=== PATIENT | male | born 1980 | race Caucasian/White ===

== ENCOUNTER → 2020-05-31 17:34 | Outpatient (BNVA) | payer BC, SELFPAY | PROVIDERS: Family Provider Family Medicine; PCP Family Medicine; Visit Provider Nurse Practitioner | DX: B34.9 Viral infection, unspecified (principal); J02.9 Acute pharyngitis, unspecified | CPT/HCPCS: 87071; 87880 ==

== ENCOUNTER 2021-06-22 09:29 | Outpatient (CLI) | payer BC, SELFPAY ==
[2021-06-22 09:57] LABS: D Dimer <= 0.27 ug/mIFEU (0-0.59)
== END 2021-06-22 09:30 | disposition home or self-care (01) ==
PROVIDERS: PCP Family Medicine; Visit Provider Family Medicine
DX: U07.1 COVID-19 (principal)
CPT/HCPCS: 85378

== ENCOUNTER → 2024-08-30 10:16 | Outpatient (BNVA) | payer BC, SELFPAY | PROVIDERS: PCP Family Medicine; Visit Provider Registered Nurse Neonatal Intensive Care | DX: R50.9 Fever, unspecified (principal); R39.9 Unspecified symptoms and signs involving the genitourinary system | CPT/HCPCS: 81000; 87086; 87400 ==

== ENCOUNTER 2025-10-01 10:12 | Emergency (ER) | payer BC, SELFPAY ==
[2025-10-01 10:15] VITALS: BP 144/88; PULSE 103; RESP 20; TEMP 37.3; O2SAT 95; BMI 31.1
--- NOTE | 2025-10-01 10:19 | XRR_ITS ---
PROCEDURE INFORMATION: Exam: XR Right Hand Exam date and time: 10/01/2025 10:35 AM Age: 45 years old Clinical indication: Injury or trauma; Other: Smashed fingers TECHNIQUE: Imaging protocol: Radiologic exam of the right hand. Views: 3 or more views. COMPARISON: No relevant prior studies available. FINDINGS: Bones/joints: Comminuted, nondisplaced tuft fracture of the right 2nd distal phalanx. Comminuted tuft fracture of the right 3rd distal phalanx with approximately 2 mm of volar displacement the of the distal fracture fragment. Comminuted tuft fracture of the right 4th distal phalanx with approximately 4 mm of distraction and 1 shaft width of volar displacement of the distal fracture fragment. No dislocation. Normal bone mineralization. No joint effusion. Joint spaces are maintained. Soft tissues: Soft tissue swelling at the distal 2nd, 3rd, and 4th fingers with a laceration at the 4th finger. No radiopaque foreign body. XR/XR hand RT min 3V* [id number] IMPRESSION: 1. Comminuted, nondisplaced tuft fracture of the right 2nd distal phalanx. 2. Comminuted tuft fracture of the right 3rd distal phalanx with approximately 2 mm of volar displacement the of the distal fracture fragment. 3. Comminuted tuft fracture of the right 4th distal phalanx with approximately 4 mm of distraction and 1 shaft width of volar displacement of the distal fracture fragment. 4. Soft tissue swelling at the distal 2nd, 3rd, and 4th fingers with a laceration at the 4th finger. 5. Incidental/nonacute findings are listed in the report.
[2025-10-01 10:38] VITALS: RESP 20; O2SAT 95
[2025-10-01] MEDS: morphine 4 mg/mL SDV 1 mL IVP ×2 (10:38→12:10)
[2025-10-01] MEDS: ceFAZolin 1,000 mg SDV 1000 MG IVP (10:56)
[2025-10-01 11:00] VITALS: BP 147/87; PULSE 101; O2SAT 94
--- NOTE | 2025-10-01 11:04 | W.ED.WOUNDLC ---
HPI - Wound/Laceration General: Chief Complaint: Wound/Laceration Stated Complaint: Cut R hand fingers Time Seen by Provider: 10/01/25 10:15 History of Present Illness: 45-year-old male was loading some equipment and crushed his 3rd and 4th fingers of his right hand. He is up-to-date on his tetanus. He denies any other injuries. He drove himself to the emergency room he has partial amputations of both fingertips. Related Data Previous Rx's ?Medication ?Instructions ?Recorded mupirocin 2 % topical ointment 1 applic topical DAILY #22 grams 10/01/25 (Centany) cephalexin 500 mg capsule 500 mg PO TID 10 days #30 caps 10/05/25 hydrocodone 5 mg-acetaminophen 325 1 tab PO Q6H PRN pain 5 days #20 10/05/25 mg tablet tabs Allergies Allergy/AdvReac Type Severity Reaction Status Date / Time No Known Allergies Allergy Verified 10/07/25 10:57 [facility] ED PFSH: Medical History HTN (hypertension) Chest pain Social History Smoking and tobacco/nicotine status: never used tobacco/nicotine Alcohol intake: never Substance/Drug Use: never Physical Exam Extremity: NARRATIVE EXTREMITY EXAM: Crush injury with partial amputation of the 3rd and 4th distal phalanx on the right hand. No injury proximally. There is good vascularity to the tips of the fingers distal to the crush injury. Procedures Laceration Laceration 1: Site: upper extremity Side (If applicable): right (Second finger) Size (cm): 2.5 Description: irregular Depth: simple, single layer Local Anesthetic: other anesthetic (Digital nerve block) Pre-repair: irrigated extensively Skin layer closed with: nylon Size (cm): 3-0 Number of sutures: 3 Technique: simple, interrupted Laceration 2: Site: upper extremity and hand Side (If applicable): right Size (cm): 2.5 Description: irregular Depth: simple, single layer Local Anesthetic: other anesthetic (Digital nerve block) Nerve Block Nerve Block 1: Time out performed: Yes Local Anesthetic: lidocaine 1% Amount of anesthesia used (mL): 3 Side: right (Fourth finger) Nerve Blocks: digital Procedure Successful: Yes Patient Tolerated Procedure: well Nerve Block 2: Time out performed: Yes Amount of anesthesia used (mL): 3 Side: right Nerve Blocks: digital (Third finger) Procedure Successful: Yes Patient Tolerated Procedure: well Complications: none Course Vital Signs: Vital signs: Vital Signs Temperature 99.1 F 10/01/25 10:15 Pulse Rate 84 10/01/25 12:56 Respiratory Rate 18 10/01/25 12:10 Blood Pressure 131/86 10/01/25 12:56 Pulse Oximetry 94 10/01/25 12:56 Oxygen Delivery Me thod Room Air 10/01/25 10:15 MDM - Wound/Laceration Medical Decision Making Digital nerve block carried out on the right 3rd and 4th fingers. The wounds were copiously irrigated. Nail trephinated and a single suture of 3-0 nylon placed to approximate the skin tissue. After this single suture placed both medially and laterally to secure the tissue. On initial exam patient had good capillary refill of the distal soft tissue repeat exam still has good capillary refill after repair. Both the 3rd and 4th fingers were treated in the same fashion. Distal tuft fractures of 2nd, 3rd and 4th digits. The laceration was loosely closed including trephination of the nail to allow for sutures on 3rd and 4th finger. A large bulky Ortho-Glass splint was made to protect the fingertip. Discussed with Dr. Mckee. Will discharge patient home and have him follow-up in outpatient clinic with Dr. Mckee. He was given oral antibiotics. Medical Records I reviewed the patient's medical records. Lab Data I reviewed the patient's lab results. Radiology Impressions Hand X-Ray 10/01/25 10:19 IMPRESSION: 1. Comminuted, nondisplaced tuft fracture of the right 2nd distal phalanx. 2. Comminuted tuft fracture of the right 3rd distal phalanx with approximately 2 mm of volar displacement the of the distal fracture fragment. 3. Comminuted tuft fracture of the right 4th distal phalanx with approximately 4 mm of distraction and 1 shaft width of volar displacement of the distal fracture fragment. 4. Soft tissue swelling at the distal 2nd, 3rd, and 4th fingers with a laceration at the 4th finger. 5. Incidental/nonacute findings are listed in the report. All radiology interpretation(s) finalized by discharge Discharge Plan Discharge Patient Disposition: Home Clinical Impression: Partial traumatic amputation of right middle finger through phalanx, Partial traumatic amputation of right ring finger through phalanx Condition: Stable Prescriptions: New mupirocin [Centany] 2 % ointment 1 applic topical DAILY Qty: 22 0RF No Action hydrocodone-acetaminophen 5-325 mg tablet 1 tab PO Q6H PRN (Reason: pain) 5 Days Qty: 20 0RF cephalexin 500 mg capsule 500 mg PO TID 10 Days Qty: 30 0RF Discharge Orders: Discharge ED (Routine); Ordered 10/01/25 Ordered By: Ollie Orellana Referrals: Laura Tony DO [Primary Care Provider, Urgent Care] Discharge Diet: Usual diet Discharge Activity: Limit activity as instructed Patient Instructions: Opioid Safety, Pain Management, Patient Portal & Shiva Instructions Activity Restrictions/Additional Instructions: Thank you for choosing [facility] for your healthcare needs today. It is very important that you follow up as instructed or that you return to the Emergency Department should you have concerns or if your condition changes or worsens in any way. Emergency department visits are focused on emergent conditions, in some cases you may require further evaluation on an outpatient basis. You were seen in the emergency room after trauma to the right 3rd and 4th fingertips which were partially amputated. The tissue was loosely reapproximated with sutures. Case management make arrangements for you to follow-up with Dr. Mckee in the office. It is possible that these may need to be revised depending on how they heal. You are given pain medications oral antibiotics topical antibiotic ointment. Clean the wounds under running water once daily and apply the topical antibiotic ointment. We also fashioned a splint to protect the fingertips. Return if there is any sign of infection. (Please note that included in your discharge packet is information concerning opioid safety and pain management. 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
[2025-10-01 11:30] VITALS: BP 154/94; PULSE 93; O2SAT 93
[2025-10-01 12:10] VITALS: RESP 18
[2025-10-01] MEDS: bacitracin ointment Pkt 1 EACH TOPICAL (12:29)
[2025-10-01 12:56] VITALS: BP 131/86; PULSE 84; O2SAT 94
== END 2025-10-01 12:58 | disposition home or self-care (01) ==
PROVIDERS: Emergency Provider Family Medicine; PCP Family Medicine
DX: S68.622A Partial traumatic transphalangeal amputation of right middle finger, initial encounter (principal); S68.624A Partial traumatic transphalangeal amputation of right ring finger, initial encounter; I10 Essential (primary) hypertension; X58.XXXA Exposure to other specified factors, initial encounter
CPT/HCPCS: 12002; 73130; 96374; 96375; 96376; 99284; J0690; J2270; J9999

== ENCOUNTER → 2025-10-05 14:07 | Outpatient (BNVA) | payer BC, SELFPAY | PROVIDERS: PCP Family Medicine; Visit Provider Physician Assistant | DX: S68.624D Partial traumatic transphalangeal amputation of right ring finger, subsequent encounter (principal); S68.622D Partial traumatic transphalangeal amputation of right middle finger, subsequent encounter; W23.0XXA Caught, crushed, jammed, or pinched between moving objects, initial encounter | CPT/HCPCS: 73130 ==

== ENCOUNTER 2025-10-07 10:41 | Day surgery (SDC) | payer BC, SELFPAY ==
[2025-10-07] VITALS (15 sets, daily range): BP systolic 124–159; BP diastolic 70–104; PULSE 62–85; RESP 14–24; TEMP 36.1–37.3; O2SAT 92–98; BMI 32.3
--- NOTE | 2025-10-07 | XR_ITS ---
WS: [id number] Exam: XR hand RT 2V [id number] Date/Time of Exam: 10/07/2025 12:00 AM Reason For Exam: HAND SURGERY DLP: Intraoperative AP and lateral C-arm images of the RIGHT third and fourth fingers are submitted. There is axial pin fixation involving fractures of the third and fourth distal phalanges. Both fractures appear to be stabilized in satisfactory alignment for healing.
--- NOTE | 2025-10-07 11:13 | ANES.PREANE2 ---
Pre-Anesthetic Assessment Height/Weight: Height 6 ft 6 in Preop Diagnosis: Traumatic amputation of right ring and middle finger Operation Date: 10/07/25 12:40 Proposed Procedures p RIGHT Middle Finger and RIGHT Ring Finger Irrigation and Debridement(Right) - Braden Duranatt, DO s RIGHT Middle and Right Ring Finger POSSIBLE Nail Bed Repair(Right) - Braden Mckee, DO s POSSIBLE Revision Amputation(Right) - Braden Rylee, DO Was Beta Rita taken within 24 hours: N/A Was Clonidine taken within 24 hours: N/A Social No alcohol and No tobacco Exam alert, oriented x 3, clear to auscultation bilaterally and regular rate & rhythm Airway Submandibular: within normal limits Cervical ROM: within normal limits Mallampati: Class III Dentition: full Comments: Comments: Multiple missing teeth, denies any loose Anesthetic Plan ASA status: 2 Anesthesia: Choice Other: No prior issues with anesthesia NPO since yesterday evening Patient states he he has a mild history of hypertension but has never been placed on any meds for this Denies any pulmonary issues METs greater than 4 Medications/Allergies Home Medications ?Medication ?Instructions ?Recorded ?Confirmed ?Last Taken ?Type mupirocin 2 % topical ointment 1 applic topical DAILY #22 grams 10/01/25 10/07/25 10/06/25 Rx (Centany) cephalexin 500 mg capsule 500 mg PO TID 10 days #30 caps 10/05/25 10/07/25 10/07/25 Rx hydrocodone 5 mg-acetaminophen 325 1 tab PO Q6H PRN pain 5 days #20 10/05/25 10/07/25 10/07/25 Rx mg tablet tabs Allergies Allergy/AdvReac Type Severity Reaction Status Date / Time No Known Allergies Allergy Verified 10/07/25 10:57 [facility] Anesthesia Medical History (Updated 10/04/25 @ 09:57 by Radha Zaldivar NP) HTN (hypertension) Chest pain Social History Smoking and tobacco/nicotine status: never used tobacco/nicotine Alcohol intake: never Substance/Drug Use: never
[2025-10-07] MEDS: acetaminophen 1,000 MG/100 ML PIGGYBACK 400 MG IV (11:32)
--- NOTE | 2025-10-07 12:28 | W.PM.OPSUD ---
Surgery/Procedure H&P Update DATE OF PROCEDURE: October 07, 2025 DATE H&P PERFORMED: 10/05/25 H&P UPDATE INFORMATION: I have reviewed H&P completed within last 30 days, I have examined patient prior to procedure and No changes to prior documentation PREOP DIAGNOSIS: Traumatic amputation of right ring and middle finger PRIMARY INDICATION FOR PROCEDURE: Traumatic fingertip amputations of the right ring finger and right middle finger with apparent nailbed injury and distal phalanx fractures PLANNED PROCEDURE: Operation Date: 10/07/25 12:40 Proposed Procedures p RIGHT Middle Finger and RIGHT Ring Finger Irrigation and Debridement(Right) - DO jacqueline Patricio RIGHT Middle and Right Ring Finger POSSIBLE Nail Bed Repair(Right) - DO jacqueline Patricio POSSIBLE Revision Amputation(Right) - Braden Mckee DO
[2025-10-07] MEDS: ceFAZolin 3,000 MG in sodium chloride 0.9% (plus) 100 ML 200 MG IV (12:45)
[2025-10-07] MEDS: ROPivacaine 0.5% SDV 30 mL 25 MG INJECTION (13:42)
--- NOTE | 2025-10-07 14:48 | ANE.PACU2 ---
Inpatient post-anesthesia follow up: Airway intact: Yes Vital signs: Temperature 99.1 F Pulse Rate 62 Respiratory Rate 24 Blood Pressure 130/72 Pulse Oximetry 97 Oxygen Delivery Me thod Simple Mask Oxygen Flow Rate 10 Fraction of Inspir ed Oxygen Hydration adequate: Yes Nausea and vomiting: No Pain level: 2 Mental status: Baseline
--- NOTE | 2025-10-07 15:19 | W.PM.BPON ---
Date of Procedure: 10/07/2025 Surgeon: Braden Mckee DO Finishing Machine Operator Automatic(s): None Procedure(s) performed: Right middle finger irrigation and debridement (1.5 cm x 1.5 cm x 1.5 cm) Right middle finger nailbed repair Right middle finger distal phalanx open reduction internal fixation with K wire pinning Right ring finger irrigation and debridement (1.5 cm x 1.5 cm x 1.5 cm) Right ring finger nailbed repair Right ring finger distal phalanx open reduction internal fixation with K wire pinning Findings of the procedure(s): Patient after the prep and before tourniquet was insufflated was found to have intact volar pads with brisk capillary refill at the pulp of the fingertip consistent with I feel this would have a good propensity for healing with a nailbed repair and distal phalanx pinning. As a result each finger had nail plate removed thoroughly irrigation debridement performed and then subsequently nailbed repairs for both fingers as well as open reduction internal fixation of the distal phalanx of each bones. Tolerated procedure well without issues. Tourniquet was deflated and patient had good brisk capillary refill at the fingertips. At this point in time patient placed in a ulnar gutter splint. Patient Toller procedure well without issues or complications taken to recovery in stable condition. Estimated blood loss: 10 mL Specimen(s) removed: Nailplates removed as well as multiple bony fragmentations but nothing sent for specimen Post-operative diagnosis: Traumatic crush injury with near fingertip amputations to the right middle and right ring finger consistent with open distal phalanx fractures and nailbed injuries to the right middle and ring fingers
--- NOTE | 2025-10-07 15:19 | PM.OP ---
Operative Report Date of procedure: October 07, 2025 Pre-op diagnosis: Traumatic amputation of right ring and middle finger Post-op diagnosis: Traumatic fingertip amputations of the right ring finger and right middle finger with apparent nailbed injury and distal phalanx fractures Post-op findings: See operative report narrative Procedure done: Right middle finger irrigation and debridement (1.5 cm x 1.5 cm x 1.5 cm) Right middle finger nailbed repair Right middle finger distal phalanx open reduction internal fixation with K wire pinning Right ring finger irrigation and debridement (1.5 cm x 1.5 cm x 1.5 cm) Right ring finger nailbed repair Right ring finger distal phalanx open reduction internal fixation with K wire pinning Implants: 2 x 0.045 K wire Surgeon: Braden Mckee DO Multifocal Button Generator: none Estimated blood loss (mL): 10 65mins IV fluids: 400mL Complications: none Findings: see op note Condition: stable Disposition: same day Brief History: Patient is findings and was seen eval in the outpatient setting consistent with a crush injury to the fingertips of the right middle and ring fingers with disruption of the nailbed and open distal phalanx fracture has been on antibiotics. At this point in time we talked about his treatment options in order for better irrigation and debridement for long-term risks of infection as well as better repair of possible nailbed or evaluation of possible need for revision amputations we talked about his treatment options in detail and through shared decision making patient elects to proceed with surgical intervention for Right hand middle finger and ring finger I&D and possible revision amputation of ring finger and possible nail bed repair. Once again he understands ins and outs of the procedure the risk benefits complication alternatives of surgical nonsurgical treatment options. Understands risk for surgery he elects proceed with surgical invention all questions answered at this time. Procedure: Patient was seen evaluate in the preoperative holding area. Consent was reviewed and signed with patient. Correct digits/extremity was then subsequently marked. Patient was then seen evaluated by anesthesia once cleared for surgery patient was taken back to the operative suite. Patient was kept on hospital gurney and armboard was applied to Right upper extremity. Patient underwent anesthesia per the anesthesia apartment once appropriate anesthetized the nonsterile tourniquet applied to the right upper extremity. Right upper extremity was then prepped and draped in standard orthopedic fashion. Final timeout performed. Patient received appropriate preoperative antibiotics. Esmarch tourniquet was used exsanguinate right upper extremity tourniquet insufflated to 250 mmHg. Patient then subsequently had digital blocks performed of the right middle and ring fingers. This point in time I then subsequently evaluated Right middle?finger?patient's crush injury and open laceration around the?finger?pulp was inspected.? It was first was then thoroughly irrigated and they subsequently moved that ?nail?this allowed me full visualization of patient's complex laceration this had transverse split through the sterile matrix, germinal matrix appeared intact. This went directly down onto bone and there was a reasonably large bony fragment distally connected with the pulp. This was able to be open but then you are able to see the entire connection of the soft tissue envelope volarly which both contain both neurovascular bundles at this point in time this finger did appear to have definitely ability for salvage and no need for revision amputation. At this point I am thoroughly irrigation performed I utilized a curette and rongeur and debrided the entirety of the right middle finger which debrided in total of 1.5 cm x 1.5 cm x 1.5 cm of nonviable tissue of skin could be continued tissue and bone. At this point in time once I was satisfied with my debridement I then subsequently placed a 0.045 K wire in a retrograde fashion through the distal fracture fragment I then held the fracture reduced and then advanced the K wire across the DIP joint into the middle phalanx. This is all done under mini fluoroscopic C-arm imaging. This subsequently held reduced the finger as well as fracture as well as then reapproximated the sterile matrix. The nailbed was then repaired with Monocryl suture and then subsequently a drop of Dermabond was placed to seal the rest of this and allowed to cure. Once I was done with the right middle finger I then subsequently thoroughly irrigated once more I subsequently bent cut and capped with a [employer] ball the pin to the right middle finger. A Xeroform was placed underneath the nail eponychial him to prevent from adhesions and then the laceration that was on the radial and ulnar sides of the digit were then reapproximated with simple interrupted nylon suture. This completed the work on the right middle finger. Next in the same fashion I then started with the right ring finger thoroughly irrigation was then subsequently performed I was able debride off any hematoma and clot and was able to open both the fracture site. Once again I had to remove the nail plate which allowed me to visualize the complex fracture and patient did have a more proximal transverse split through the nailbed communicating down to the distal phalanx this allowed for a larger distal fracture fragment of bone once again I made evaluation of the germinal matrix and made small incisions in the corners of the eponychial him to lift up the eponychial fold and looked under and there was only a minimal superficial lamination of the top surface of the germinal matrix which this was held down with a [place]. I then subsequently visualized the once again transverse through the sterile matrix. This all appeared to be viable and able to be repaired I then subsequently once again verified there was significant volar pulp intact with the bundle and subsequently then thoroughly irrigated utilized curette rongeur to debride all nonviable tissue skin subcutaneous tissue fascia and bone. This area total 1.5 cm x 1.5 cm x 1.5 cm. Once this was done I then once again utilized a 0.045 K wire in retrograde fashion and pin the distal fracture fragment held the fracture reduced and advanced a K wire across the DIP joint into the middle phalanx for fracture stability. This was all done under mini fluoroscopic imaging once in satisfactory position I then subsequently performed a repair of the nailbed with chromic suture and then a drop of Dermabond glue over the nailbed for the finalize of my nailbed repair. This eponychium was held by my grants assistant to the nailbed cured with the Dermabond glue. Once this was done I then subsequently closed the laceration and incisions with interrupted nylon suture. This point in time the K wire pin was then subsequently bent cut and capped with a Lovely ball. This point in time I then subsequently cut out an additional Xeroform and placed this under the eponychial fold to prevent any adhesions. This point in time I was satisfied with the open reduction and percutaneous pinning of the distal phalanx held in good reduction manner as well as the nailbed repairs and satisfactory irrigation debridement. At this point in time tourniquet was deflated hemostasis was satisfactory. The fingertips had good brisk capillary refill. Bulky soft dressings were then applied to the right middle and ring finger and incorporated into a ulnar gutter splint out to the fingertips including the right middle and ring fingers. This was then dressed with an David wrap as well. Patient was then awakened from anesthesia and taken recovery in stable condition. Disposition: Patient taken recovery in stable condition tolerated procedure well. Will receive appropriate discharge directions as well as pain medication postoperatively as well as continued postoperative antibiotics. Patient follow-up in the orthopedic office in 2 weeks patient and family understands agrees with current plan. All questions answered.
[2025-10-07] MEDS: ondansetron 2 mg/ML SDV 2 mL 4 MG IVP ×2 (15:38→17:00)
--- NOTE | 2025-10-07 17:11 | SUR.PHASEII ---
dennis called into [facility] 4mg odt po q8h #9 0rf.
== END 2025-10-07 17:10 | disposition home or self-care (01) ==
PROVIDERS: Visit Provider Student in an Organized Health Care Education/Training Program
PROC: (CPT 26756; principal; 2025-10-07 12:30)
PROC: (CPT 26756; 2025-10-07 12:30)
PROC: (CPT 26615; 2025-10-07 12:30)
DX: S68.114A Complete traumatic metacarpophalangeal amputation of right ring finger, initial encounter (principal); S68.112A Complete traumatic metacarpophalangeal amputation of right middle finger, initial encounter; X58.XXXA Exposure to other specified factors, initial encounter; I10 Essential (primary) hypertension; Z79.891 Long term (current) use of opiate analgesic
CPT/HCPCS: 26756 ×2; 11760 ×2; 11012; 73120; 76000; C1713; J0131; J0690; J1100; J1885; J2250; J2405; J2704; J2795; J3010; J7030; J9999

== ENCOUNTER → 2025-10-19 16:06 | Outpatient (BNVA) | payer BC, SELFPAY | PROVIDERS: PCP Family Medicine; Visit Provider Physician Assistant | DX: Z98.890 Other specified postprocedural states (principal) | CPT/HCPCS: 73130 ==

== ENCOUNTER 2025-10-19 16:33 | Outpatient (CLI) | payer BC, SELFPAY | END 2025-10-19 16:34 | disposition home or self-care (01) | LOC: SOT 16:38 | PROVIDERS: PCP Family Medicine; Visit Provider Physician Assistant | DX: Z46.89 Encounter for fitting and adjustment of other specified devices (principal); S68.622D Partial traumatic transphalangeal amputation of right middle finger, subsequent encounter; S68.624D Partial traumatic transphalangeal amputation of right ring finger, subsequent encounter; W23.1XXA Caught, crushed, jammed, or pinched between stationary objects, initial encounter | CPT/HCPCS: 97760; L3808 ==

== ENCOUNTER → 2025-11-01 08:02 | Outpatient (BNVA) | payer BC, SELFPAY | PROVIDERS: PCP Family Medicine; Visit Provider Physician Assistant | DX: Z98.890 Other specified postprocedural states (principal) | CPT/HCPCS: 73130 ==

== ENCOUNTER 2025-11-15 06:30 | Outpatient (CLI) | payer BC, SELFPAY | END 2025-11-15 06:31 | disposition home or self-care (01) | LOC: SOT 11-16 09:27 | PROVIDERS: Visit Provider Physician Assistant | DX: Z46.89 Encounter for fitting and adjustment of other specified devices (principal); S68.622D Partial traumatic transphalangeal amputation of right middle finger, subsequent encounter; S68.624D Partial traumatic transphalangeal amputation of right ring finger, subsequent encounter; W23.1XXD Caught, crushed, jammed, or pinched between stationary objects, subsequent encounter | CPT/HCPCS: 97760; L3935 ==

== ENCOUNTER → 2025-11-15 07:52 | Outpatient (BNVA) | payer BC, SELFPAY | PROVIDERS: PCP Family Medicine; Visit Provider Physician Assistant | DX: Z98.890 Other specified postprocedural states (principal) | CPT/HCPCS: 73130 ==

== ENCOUNTER 2025-11-28 07:43 | Outpatient (RCR) | payer BC, SELFPAY | END 2025-11-30 23:59 | disposition home or self-care (01) | LOC: SOT 07:43 | PROVIDERS: Visit Provider Physician Assistant | DX: S68.622D Partial traumatic transphalangeal amputation of right middle finger, subsequent encounter (principal); S68.624D Partial traumatic transphalangeal amputation of right ring finger, subsequent encounter; X58.XXXD Exposure to other specified factors, subsequent encounter | CPT/HCPCS: 97165 ==